=== PATIENT | female | born 1985 | race African-American/Black ===

== ENCOUNTER 2018-09-01 12:11 | Emergency (ER) | payer MEDICARE ==
[~2018-09-01] VITALS: Ht 162.6 cm; Wt 167.8 kg
--- OUTSIDE RECORDS SUMMARY | 2018-09-01 12:13 | XMS REPORT ---
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 Allergies, Adverse Reactions, Alerts Allergy Name Allergy Type Status Severity Reaction(s) Onset Date Inactive Date Treating Clinician Comments diphenhydramine HCl DA Active U 2013-11-18 00:00:00 Penicillins DA Active U 2013-11-18 00:00:00 amoxicillin DA Active SV 2013-11-18 00:00:00 kiwi DA Active U 2013-11-18 00:00:00 Medications This patient has no known medications.
--- OUTSIDE RECORDS SUMMARY | 2018-09-01 12:13 | XMS REPORT | Clinical Summary ---
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 Last Filed Vital Signs Not on file Plan of Treatment Not on file Results Not on fileafter 08/31/2017
[2018-09-01] MEDS ORDERED: KETOROLAC TROMETHAMINE 30 MG/ML VIAL IV STA (12:29)
[2018-09-01] MEDS ORDERED: NAPROSYN500 MG PO (12:31)
[2018-09-01] MEDS ORDERED: ULTRAM50 MG PO (12:31)
--- NOTE | 2018-09-01 13:01 | Diagnostic Imaging Report ---
Exam: Left ankle 3 views History: Ankle pain, denies trauma Comparison: None. Findings: No acute, displaced fracture or dislocation. Ankle mortise is maintained. Tibial plafond and talar dome are intact. Pes planus deformity. Soft tissues are unremarkable. Impression: No acute osseous abnormality. Pes planus deformity. Signed by: Dr. Yaron Tanner M.D. on 09/01/2018 12:57 PM
--- NOTE | 2018-09-01 14:25 | Diagnostic Imaging Report ---
EXAMINATION :Left lower extremity venous Doppler exam. CLINICAL INDICATION: Lower extremity pain and swelling COMPARISON: None DISCUSSION: Gutierrez scale, color Doppler and spectral waveform analysis of the left lower extremity deep venous system was performed. Examination is markedly limited secondary to patient body habitus. The mid and peripheral segments of the superficial femoral vein as well as the entire popliteal vein could not be evaluated. The left common femoral, and central superficial femoral veins are compressible and show normal spontaneous phasic waveforms and response to augmentation. No filling defects are seen. IMPRESSION: Limited examination secondary to patient body habitus with nonvisualization of the peripheral segments of the superficial femoral vein and the entire popliteal vein. No sonographic evidence of deep venous thrombosis of the central superficial femoral vein or common femoral vein. Signed by: Dr. Yaron Tanner M.D. on 09/01/2018 2:22 PM
[2018-09-01 14:38] VITALS: BP 124/77
== END 2018-09-01 14:47 | disposition home or self-care (01) ==
LOC: FSED 12:11
DX: M25.572 Pain in left ankle and joints of left foot (principal); M25.472 Effusion, left ankle
CPT/HCPCS: 73610; 80053; 85025; 93971 ×2; 99283; J1885

== ENCOUNTER 2019-03-24 21:41 | Emergency (ER) | payer MEDICARE, OTHER ==
[~2019-03-24] VITALS: Ht 162.6 cm; Wt 147.0 kg
[~2019-03-24 21:41] MED LIST: NAPROSYN500 MG PO; ULTRAM50 MG PO
[2019-03-24] MEDS ORDERED: TRAMADOL HCL 50 MG TAB PO ONE (22:30)
[2019-03-24] MEDS ORDERED: ONDANSETRON HCL 4 MG ORAL DISINTEGRATING TAB PO ONE (22:30)
[2019-03-24] MEDS ORDERED: ONDANSETRON HCL 4 MG ORAL DISINTEGRATING TAB ONE (23:23)
[2019-03-24] MEDS ORDERED: TRAMADOL HCL 50 MG TAB ONE (23:24)
--- NOTE | 2019-03-24 23:26 | Diagnostic Imaging Report ---
Left hand 3 - views HISTORY: Pain status post trauma. COMPARISON: None FINDINGS: No displaced fracture. Subluxation of the first carpometacarpal joint with mild lateral displacement of the first metacarpal. IMPRESSION: Subluxation of the first carpometacarpal joint with mild lateral displacement of the first metacarpal. Signed by: Dr. Crow Roberson M.D. on 03/24/2019 11:23 PM
== END 2019-03-25 00:43 | disposition home or self-care (01) ==
LOC: FSED 21:41
DX: M79.642 Pain in left hand (principal); S63.052A Subluxation of other carpometacarpal joint of left hand, initial encounter; W20.8XXA Other cause of strike by thrown, projected or falling object, initial encounter; Y92.008 Other place in unspecified non-institutional (private) residence as the place of occurrence of the external cause; E11.9 Type 2 diabetes mellitus without complications; J45.909 Unspecified asthma, uncomplicated
CPT/HCPCS: 73130; 99283; Q0162

== ENCOUNTER 2020-10-05 00:49 | Emergency (ER) | payer OTHER ==
[~2020-10-05] VITALS: Ht 162.6 cm; Wt 172.4 kg
[2020-10-05] MEDS ORDERED: KETOROLAC TROMETHAMINE 60 MG/2 ML VIAL IM ONE (01:30)
[2020-10-05] MEDS ORDERED: HYDROCODONE/APAP 5MG-325MG TAB PO ONE (01:30)
[2020-10-05] MEDS ORDERED: CYCLOBENZAPRINE HCL 10 MG TAB PO ONE (01:30)
[2020-10-05] MEDS ORDERED: CYCLOBENZAPRINE HCL 10 MG TAB ONE (01:34)
[2020-10-05] MEDS ORDERED: HYDROCODONE/APAP 5MG-325MG TAB ONE (01:35)
[2020-10-05] MEDS ORDERED: KETOROLAC TROMETHAMINE 60 MG/2 ML VIAL ONE (01:35)
[2020-10-05] MEDS ORDERED: KETOROLAC TROME10 MG PO (01:49)
[2020-10-05] MEDS ORDERED: NEURONTIN300 MG PO (01:49)
[2020-10-05] MEDS ORDERED: CYCLOBENZAPRINE5 MG PO (01:49)
== END 2020-10-05 02:05 | disposition home or self-care (01) ==
LOC: FSED 01:00
DX: M79.605 Pain in left leg (principal); M79.604 Pain in right leg; E11.42 Type 2 diabetes mellitus with diabetic polyneuropathy; J45.909 Unspecified asthma, uncomplicated
CPT/HCPCS: 99283; J1885

== ENCOUNTER 2020-10-26 16:50 | Emergency (ER) | payer OTHER ==
[~2020-10-26] VITALS: Ht 162.6 cm; Wt 162.0 kg
[~2020-10-26 16:50] MED LIST changes: +CYCLOBENZAPRINE5 MG PO; +KETOROLAC TROME10 MG PO; +NEURONTIN300 MG PO
[2020-10-26] MEDS ORDERED: METFORMIN HCL500 M2 PO (17:29)
[2020-10-26] MEDS ORDERED: CLONAZEPAM1 MG PO (17:29)
[2020-10-26] MEDS ORDERED: GLIPIZIDE5 MG PO (17:29)
[2020-10-26] MEDS ORDERED: LISINOPRIL10 MG PO (17:29)
[2020-10-26] MEDS ORDERED: FUROSEMIDE40 MG PO (17:29)
== END 2020-10-26 19:23 | disposition home or self-care (01) ==
LOC: FSED 16:55
DX: S13.4XXA Sprain of ligaments of cervical spine, initial encounter (principal); M54.5 Low back pain; S60.222A Contusion of left hand, initial encounter; V43.52XA Car driver injured in collision with other type car in traffic accident, initial encounter; Y92.488 Other paved roadways as the place of occurrence of the external cause; E11.65 Type 2 diabetes mellitus with hyperglycemia; I10 Essential (primary) hypertension; J45.909 Unspecified asthma, uncomplicated
CPT/HCPCS: 72100; 72125; 99283

== ENCOUNTER 2020-12-29 15:48 | Emergency (ER) | payer OTHER ==
[~2020-12-29] VITALS: Ht 162.6 cm; Wt 158.4 kg
[~2020-12-29 15:48] MED LIST changes: +CLONAZEPAM1 MG PO; +FUROSEMIDE40 MG PO; +GLIPIZIDE5 MG PO; +LISINOPRIL10 MG PO; +METFORMIN HCL500 M2 PO
[2020-12-29] MEDS ORDERED: SODIUM CHLORIDE 0.9% 1000ML 1,000 ML IV STA (16:11)
[2020-12-29] MEDS ORDERED: ACETAMINOPHEN 325 MG TAB PO ONE (16:15)
[2020-12-29] MEDS ORDERED: ONDANSETRON HCL INJ 2MG/ML 2ML 2 MG/ML VIAL IV ONE (16:15)
[2020-12-29] MEDS ORDERED: KETOROLAC TROMETHAMINE 30 MG/ML VIAL IV ONE (16:15)
[2020-12-29] MEDS ORDERED: FAMOTIDINE 20 MG/2 ML VIAL IV ONE ×2 (16:15→16:50)
[2020-12-29] MEDS ORDERED: CYCLOBENZAPRINE5 MG PO (16:33)
[2020-12-29] MEDS ORDERED: NEURONTIN400 MG PO (16:33)
[2020-12-29] MEDS ORDERED: GLIMEPIRIDE2 MG PO (16:33)
[2020-12-29] MEDS ORDERED: ATORVASTATIN CA20 MG PO (16:33)
[2020-12-29] MEDS ORDERED: ALPRAZOLAM0.5 MG PO (16:33)
[2020-12-29] MEDS ORDERED: LISINOPRIL10 MG PO (16:33)
[2020-12-29] MEDS ORDERED: AMLODIPINE BESY10 MG PO (16:33)
[2020-12-29] MEDS ORDERED: ZOLOFT100 MG PO (16:33)
[2020-12-29] MEDS ORDERED: NAPROXEN250 MG PO (16:33)
[2020-12-29] MEDS ORDERED: ACETAMINOPHEN 325 MG TAB ONE (16:50)
[2020-12-29] MEDS ORDERED: KETOROLAC TROMETHAMINE 30 MG/ML VIAL ONE (16:50)
[2020-12-29] MEDS ORDERED: ONDANSETRON HCL INJ 2MG/ML 2ML 2 MG/ML VIAL ONE (16:50)
[2020-12-29] MEDS ORDERED: SODIUM CHLORIDE 0.9% 1000ML 1,000 ML ONE (16:50)
[2020-12-29] MEDS ORDERED: MACROBID 100 M100 MG PO (17:09)
[2020-12-29] MEDS ORDERED: ONDANSETRON ODT4 MG PO (17:09)
[2020-12-29] MEDS ORDERED: IBUPROFEN IB200 MG PO (17:09)
[2020-12-29] MEDS ORDERED: ULTRAM 50MG50 MG PO (17:09)
[2020-12-29 18:22] VITALS: BP 117/61
== END 2020-12-29 17:45 | disposition home or self-care (01) ==
LOC: FSED 16:20
DX: R06.02 Shortness of breath (principal); R07.9 Chest pain, unspecified; R00.0 Tachycardia, unspecified; N39.0 Urinary tract infection, site not specified; E11.65 Type 2 diabetes mellitus with hyperglycemia; R94.31 Abnormal electrocardiogram [ECG] [EKG]; I10 Essential (primary) hypertension; E78.5 Hyperlipidemia, unspecified; F41.9 Anxiety disorder, unspecified; E66.9 Obesity, unspecified
CPT/HCPCS: 71045; 80053; 81003; 82553; 84484; 85025; 85379; 93005; 96374; 96375; 99284; J1885; J2405; J7030

== ENCOUNTER 2021-02-02 00:10 | Emergency (ER) | payer OTHER ==
[~2021-02-02] VITALS: Ht 162.6 cm; Wt 158.3 kg
[~2021-02-02 00:10] MED LIST changes: +ALPRAZOLAM0.5 MG PO; +AMLODIPINE BESY10 MG PO; +ATORVASTATIN CA20 MG PO; +GLIMEPIRIDE2 MG PO; +IBUPROFEN IB200 MG PO; +MACROBID 100 M100 MG PO; +NAPROXEN250 MG PO; +NEURONTIN400 MG PO; +ONDANSETRON ODT4 MG PO; +ULTRAM 50MG50 MG PO; +ZOLOFT100 MG PO
== END 2021-02-02 01:15 | disposition home or self-care (01) ==
LOC: FSED 00:59
DX: M79.641 Pain in right hand (principal); I10 Essential (primary) hypertension; E11.9 Type 2 diabetes mellitus without complications; Z88.3 Allergy status to other anti-infective agents; Z88.0 Allergy status to penicillin; Z88.8 Allergy status to other drugs, medicaments and biological substances; Z91.018 Allergy to other foods
CPT/HCPCS: 99282

== ENCOUNTER 2021-03-23 15:55 | Emergency (ER) | payer OTHER ==
[~2021-03-23] VITALS: Ht 162.6 cm; Wt 145.1 kg
[2021-03-23] MEDS ORDERED: IBUPROFEN 600 MG TAB PO STA (16:21)
[2021-03-23] MEDS ORDERED: IBUPROFEN 600 MG TAB ONE (17:22)
== END 2021-03-23 17:53 | disposition home or self-care (01) ==
LOC: FSED 15:59
DX: S93.601A Unspecified sprain of right foot, initial encounter (principal); W18.2XXA Fall in (into) shower or empty bathtub, initial encounter; Y93.E1 Activity, personal bathing and showering; Y92.002 Bathroom of unspecified non-institutional (private) residence as the place of occurrence of the external cause; I10 Essential (primary) hypertension; E11.9 Type 2 diabetes mellitus without complications; E78.5 Hyperlipidemia, unspecified; F41.9 Anxiety disorder, unspecified; E66.9 Obesity, unspecified
CPT/HCPCS: 99283

== ENCOUNTER 2024-12-24 15:25 | Emergency (ER) | payer SELFPAY ==
[~2024-12-24] VITALS: Ht 162.6 cm; Wt 158.4 kg
[~2024-12-24 15:25] MED LIST changes: +IBUPROFEN600 MG PO; +JARDIANCE25 MG; +LISINOPRIL-HCT1 EAC1; +XARELTO10 MG PO
[2024-12-24 15:27] VITALS: PULSE 89; RESP 17; TEMP 98; O2SAT 98
[2024-12-24] MEDS ORDERED: OFLOXACIN5 ML LEFT EAR (15:44)
[2024-12-24] MEDS ORDERED: TYLENOL325 MG PO (15:44)
[2024-12-24] MEDS ORDERED: CLINDAMYCIN HC300 MG PO (15:44)
[2024-12-24] MEDS ORDERED: PROBIOTIC & AC1 EACH PO (15:44)
== END 2024-12-24 15:52 | disposition home or self-care (01) ==
LOC: FSED 15:27
DX: H66.92 Otitis media, unspecified, left ear (principal); I10 Essential (primary) hypertension; F41.9 Anxiety disorder, unspecified; E78.5 Hyperlipidemia, unspecified; M54.9 Dorsalgia, unspecified; G89.29 Other chronic pain; Z88.0 Allergy status to penicillin; Z88.1 Allergy status to other antibiotic agents; Z91.013 Allergy to seafood; Z91.018 Allergy to other foods
CPT/HCPCS: 99284